=== PATIENT | male | born 1965 | race Two or more races ===

== ENCOUNTER 2018-03-03 21:23 | Emergency (ER) | payer SELFPAY ==
[~2018-03-03] VITALS: Ht 180.3 cm; Wt 93.0 kg
--- NOTE | 2018-03-03 21:23 | NUR ---
LEFT LOWER LEG PAIN S/P GLF. VSS NO ACUTE DISTRESS AT THIS TIME. A/OX3 ABLE TO MAKE NEEDS KNOWN. WILL CONTINUE TO MONITOR FOR ANY CHANGES DURING THE SHIFT.
[2018-03-03] MEDS ORDERED: IBUPROFEN 600 MG TABLET PO ONE ×2 (22:30→22:45)
[2018-03-03] MEDS ORDERED: HYDROCODONE/APAP 5/325MG 1 EACH TABLET PO ONE (22:30)
--- NOTE | 2018-03-03 22:30 | NUR ---
AEROSPACE ENGINEER AT BEDSIDE
[2018-03-03] MEDS ORDERED: HYDROCODONE/APAP 5/325MG 1 EACH TABLET ONE (22:45)
[2018-03-04 00:12] VITALS: BP 121/79
== END 2018-03-04 00:42 | disposition home or self-care (01) ==
LOC: ER 21:24
DX: S82.892A Other fracture of left lower leg, initial encounter for closed fracture (principal); S82.302A Unspecified fracture of lower end of left tibia, initial encounter for closed fracture; S82.832A Other fracture of upper and lower end of left fibula, initial encounter for closed fracture; V00.131A Fall from skateboard, initial encounter; Y93.51 Activity, roller skating (inline) and skateboarding; Y92.89 Other specified places as the place of occurrence of the external cause; Y99.8 Other external cause status
CPT/HCPCS: 29515; 73590; 73610; 99284; A4606; Z7610